=== PATIENT | male | born 1985 | race Hispanic/Latino ===

== ENCOUNTER 2019-02-11 10:53 | Emergency (ER) | payer BC ==
[2019-02-11] MEDS ORDERED: Ketorolac Tromethamine 30 MG/ML VIAL ONE (12:54)
== END 2019-02-11 13:18 | disposition home or self-care (01) ==
LOC: ERS 10:53
DX: G56.02 Carpal tunnel syndrome, left upper limb (principal); I10 Essential (primary) hypertension; F17.210 Nicotine dependence, cigarettes, uncomplicated; Z79.899 Other long term (current) drug therapy; Z79.82 Long term (current) use of aspirin
CPT/HCPCS: 96372; 99283; J1885

== ENCOUNTER 2019-03-30 19:18 | Emergency (ER) | payer BC | END 2019-03-30 21:08 | disposition home or self-care (01) | LOC: ERS 19:18 | DX: G56.01 Carpal tunnel syndrome, right upper limb (principal); I10 Essential (primary) hypertension; F17.210 Nicotine dependence, cigarettes, uncomplicated; Z79.82 Long term (current) use of aspirin; Z79.899 Other long term (current) drug therapy | CPT/HCPCS: 99283 ==

== ENCOUNTER 2019-12-05 21:22 | Emergency (ER) | payer BC, OTHER ==
[2019-12-06 17:29] LABS: SARS-CoV-2 MS2 Positive; SARS-CoV-2 N Gene Negative; SARS-CoV-2 S Gene Negative; SARS-CoV-2 orf1ab Negative
== END 2019-12-05 21:45 | disposition home or self-care (01) ==
LOC: ERS 21:22
DX: R53.83 Other fatigue (principal); R19.7 Diarrhea, unspecified; Z20.828 Contact with and (suspected) exposure to other viral communicable diseases; F17.210 Nicotine dependence, cigarettes, uncomplicated; I10 Essential (primary) hypertension; Z79.891 Long term (current) use of opiate analgesic
CPT/HCPCS: 87635; 99284; U0003

== ENCOUNTER 2020-05-09 17:18 | Emergency (ER) | payer BC ==
[2020-05-10 20:45] LABS: SARS-CoV-2 MS2 Positive; SARS-CoV-2 N Gene Negative; SARS-CoV-2 S Gene Negative; SARS-CoV-2 by NAA Not Detected (NotDetected); SARS-CoV-2 orf1ab Negative
== END 2020-05-09 18:20 | disposition home or self-care (01) ==
LOC: ERS 17:18
DX: R05 Cough (principal); J02.9 Acute pharyngitis, unspecified; Z20.828 Contact with and (suspected) exposure to other viral communicable diseases; I10 Essential (primary) hypertension; F17.210 Nicotine dependence, cigarettes, uncomplicated; Z79.899 Other long term (current) drug therapy
CPT/HCPCS: 87635; 99283; U0003

== ENCOUNTER 2023-12-25 13:19 | Emergency (ER) | payer SELFPAY | END 2023-12-25 15:00 | disposition home or self-care (01) | LOC: ERS 13:19 | DX: S67.191A Crushing injury of left index finger, initial encounter (principal); L03.012 Cellulitis of left finger; I10 Essential (primary) hypertension; W23.0XXA Caught, crushed, jammed, or pinched between moving objects, initial encounter; Y93.89 Activity, other specified; Z95.810 Presence of automatic (implantable) cardiac defibrillator; Z79.899 Other long term (current) drug therapy ==

== ENCOUNTER 2023-12-28 18:35 | Inpatient (IN) | payer SELFPAY ==
[2023-12-28 20:19] LABS: #Basophils 0.03 10x3/uL (0.0-0.2); %Basophils 0.3 % (0.0-1.0); %Lymphocytes 21.5 % (21.0-51.0); %Monocytes 8.4 % (0.0-10.0); %Neutrophils 68.5 % (42.0-75.0); Hematocrit 42.9 % (42.0-52.0); Hemoglobin 14.4 g/dL (14.0-18.0); Mean Corpuscular HGB CONC 33.6 g/dL (32.0-36.0); Mean Corpuscular Hemoglobin 30.1 pg (27.0-31.0); Mean Corpuscular Volume 89.7 fL (78.0-98.0); Mean Platelet Volume 8.6 fL (7.4-10.4); Platelet Count 344 10x3/uL (130-400); RBC Distribution Width 13.3 % (11.5-14.5); Red Blood Cell (RBC) Count 4.78 mill/uL (4.70-6.10)
[2023-12-28 20:34] LABS: ALT (SGPT) 14 U/L (8-55); AST (SGOT) 16 U/L (5-34); Albumin 3.4 g/dL (3.5-5.0); Alkaline Phosphatase 106 U/L (40-110); Anion Gap 11 mmol/L (10-20); BUN (Urea Nitrogen) 19 mg/dL (8.9-20.6); Bilirubin, Total 0.2 mg/dL (0.2-1.2); Calc. Creatinine Clearance 0 mL/min (70-130); Calcium 9.1 mg/dL (7.8-10.44); Carbon Dioxide 24 mmol/L (22-29); Chloride 107 mmol/L (98-107); Estimated GFR 95; Globulin 3.8 g/dL (2.4-3.5); Glucose 111 mg/dL (70-105); Potassium 3.9 mmol/L (3.5-5.1); Protein, Total 7.2 g/dL (6.0-8.3); Sodium 138 mmol/L (136-145)
[2023-12-28] MEDS ORDERED: Cefepime 2 GM VIAL ONE (20:59)
[2023-12-28] MEDS ORDERED: Ondansetron PF 4 MG/2 ML Vial ONE (21:00)
[2023-12-28] MEDS ORDERED: Morphine 4 MG/ML VIAL ONE (21:00)
[2023-12-28 22:19] VITALS: BMI 32.5
[2023-12-28] MEDS: Vancomycin (BATCH) 2 GM in Premix 1 BAG IVPB SCH (22:37)
[2023-12-28] MEDS ORDERED: Ondansetron ODT 4 MG TAB PO PRN (22:45)
[2023-12-28] MEDS ORDERED: Electrolyte Replacement Protocol 1 EACH FS SCH (22:45)
[2023-12-28] MEDS ORDERED: Docusate 100 MG CAP PO PRN (22:45)
[2023-12-28] MEDS ORDERED: Ondansetron PF 4 MG/2 ML Vial IVP PRN (22:45)
[2023-12-28] MEDS: HYDROcodone/Acetaminophen 5/325 mg Tablet PO PRN (23:06)
[2023-12-28] MEDS: Famotidine 20 MG TAB PO SCH (23:07)
[2023-12-28] MEDS: Sodium Chloride 0.9% 1,000 ML IV SCH (23:08)
[2023-12-28] MEDS: Carvedilol 6.25 MG TAB PO SCH (23:08)
[2023-12-29] MEDS: Morphine 4 MG/ML VIAL SLOW IVP PRN (04:28)
[2023-12-29] MEDS: Cefepime 2 GM in Sodium Chloride 0.9% 100 ML IVPB SCH (08:44)
[2023-12-29] MEDS: Carvedilol 6.25 MG TAB PO SCH (08:44)
[2023-12-29] MEDS: Famotidine 20 MG TAB PO SCH (08:44)
[2023-12-29] MEDS ORDERED: Vancomycin 1 GM in Premix 1 BAG IVPB SCH (09:00)
[2023-12-29 09:57] LABS: #Basophils 0.03 10x3/uL (0.0-0.2); %Basophils 0.4 % (0.0-1.0); %Lymphocytes 26.4 % (21.0-51.0); %Monocytes 10.1 % (0.0-10.0); %Neutrophils 61.7 % (42.0-75.0); Hematocrit 42.1 % (42.0-52.0); Hemoglobin 13.5 g/dL (14.0-18.0); Mean Corpuscular HGB CONC 32.1 g/dL (32.0-36.0); Mean Corpuscular Hemoglobin 29.6 pg (27.0-31.0); Mean Corpuscular Volume 92.3 fL (78.0-98.0); Mean Platelet Volume 9.5 fL (7.4-10.4); Platelet Count 295 10x3/uL (130-400); RBC Distribution Width 13.5 % (11.5-14.5); Red Blood Cell (RBC) Count 4.56 mill/uL (4.70-6.10)
[2023-12-29] MEDS: Vancomycin (BATCH) 1.25 GM in Premix 1 BAG IVPB SCH (10:15)
[2023-12-29 10:25] LABS: ALT (SGPT) 47 U/L (8-55); AST (SGOT) 88 U/L (5-34); Albumin 2.9 g/dL (3.5-5.0); Alkaline Phosphatase 97 U/L (40-110); Anion Gap 12 mmol/L (10-20); BUN (Urea Nitrogen) 13 mg/dL (8.9-20.6); Bilirubin, Total 0.4 mg/dL (0.2-1.2); Calc. Creatinine Clearance 159 mL/min (70-130); Calcium 8.5 mg/dL (7.8-10.44); Carbon Dioxide 20 mmol/L (22-29); Chloride 109 mmol/L (98-107); Estimated GFR 117; Globulin 3.2 g/dL (2.4-3.5); Glucose 74 mg/dL (70-105); Potassium 4.8 mmol/L (3.5-5.1); Protein, Total 6.1 g/dL (6.0-8.3); Sodium 136 mmol/L (136-145)
[2023-12-29 10:37] LABS: Vancomycin, Random 12.8 ug/mL (See Comment)
[2023-12-29] MEDS ORDERED: fentaNYL PF 100 MCG/2 ML SYRINGE ONE (13:42)
[2023-12-29] MEDS ORDERED: PROPOFOL 40 ML ONE (13:42)
[2023-12-29] MEDS ORDERED: PHENYLEPHRINE-NS 100 MCG/ML 10 ML SYRINGE ONE ×2 (13:52)
[2023-12-29] MEDS ORDERED: Lidocaine 2% PF 5 ML VIAL ONE ×2 (13:52→14:45)
[2023-12-29] MEDS ORDERED: Calcium Chloride 1 GM/10 ML Abboject SYRINGE ONE (14:14)
[2023-12-29] MEDS ORDERED: Ondansetron PF 4 MG/2 ML Vial ONE (15:32)
[2023-12-29] MEDS ORDERED: Dexamethasone 4 mg/ml Vial ONE (15:32)
[2023-12-29] MEDS: Vancomycin (BATCH) 1.5 GM in Premix 1 BAG IVPB SCH (22:04)
[2023-12-30 05:27] LABS: Vancomycin, Random 20.8 ug/mL (See Comment)
[2023-12-30 12:20] VITALS: BMI 32.5
[2024-01-01 08:36] LABS: Vancomycin, Random 15.6 ug/mL (See Comment)
[2024-01-01] MEDS: Cefepime 2 GM VIAL ONE (08:42)
[2024-01-01] MEDS: Vancomycin (BATCH) 1.5 GM/300 ML BAG ONE (21:35)
[2024-01-02 07:44] VITALS: BP 137/95; TEMP 98
== END 2024-01-02 13:40 | disposition home or self-care (01) | DRG 872 ==
LOC: ERS 18:35 → T4-A 21:25
PROVIDERS: ADMIT Internal Medicine; ATTEND Internal Medicine
PROC: 0J9K0ZZ Drainage of Left Hand Subcutaneous Tissue and Fascia, Open Approach (ICD-10-PCS; principal; 2023-12-29)
PROC: 0HBGXZZ Excision of Left Hand Skin, External Approach (ICD-10-PCS; 2023-12-29)
DX: A41.02 Sepsis due to Methicillin resistant Staphylococcus aureus (principal); L02.512 Cutaneous abscess of left hand; I42.1 Obstructive hypertrophic cardiomyopathy; L03.114 Cellulitis of left upper limb; I10 Essential (primary) hypertension; E88.09 Other disorders of plasma-protein metabolism, not elsewhere classified; Z79.82 Long term (current) use of aspirin; Z79.2 Long term (current) use of antibiotics; Z79.899 Other long term (current) drug therapy; Z95.810 Presence of automatic (implantable) cardiac defibrillator; Z87.891 Personal history of nicotine dependence; Z90.49 Acquired absence of other specified parts of digestive tract
CPT/HCPCS: 36415; 80053; 80202; 82565; 83605; 85025; 87040; 87070; 87077; 87186; 87205; 96374; 96375; 97139; J0692; J1100; J2001; J2270; J2405; J2704; J3370; J3490; J7050